=== PATIENT | male | born 1975 | race Caucasian/White ===

== ENCOUNTER → 2023-09-16 12:00 | Outpatient (CLI) | payer OTHER, SELFPAY ==
[2023-09-16 19:23] LABS: Basophils # 0.1 K/mm3 (0-0.2); Basophils % 0.6 % (0.1-2.0); Eosinophils # 0.3 K/mm3 (0.0-0.4); Eosinophils % 2.2 % (0.1-12.0); Hematocrit 50.6 % (42.0-52.0); Hemoglobin 17.7 g/dL (14.1-18.0); Lymphocytes # 2.5 K/mm3 (0.7-4.5); Lymphocytes % 17.4 % (10-50); Mean Corpuscular HGB Conc 34.9 g/dL (31.8-35.4); Mean Corpuscular Volume 91.5 fl (80-94); Mean Platelet Volume 10.8 fl (7.4-10.4); Monocytes # 0.8 K/mm3 (0.1-1.0); Monocytes % 5.6 % (1.7-9.3); Neutrophils # 10.5 K/mm3 (1.8-7.8); Neutrophils % 74.1 % (37.0-80.0); Platelet Count 217 K/mm3 (142-424); Red Blood Count 5.53 M/mm3 (4.60-6.20); White Blood Count 14.1 K/mm3 (4.8-10.8)
[2023-09-16 19:35] LABS: Alanine Aminotransferase 44 U/L (12-78); Albumin Level 4.5 g/dl (3.5-5.0); Albumin/Globulin Ratio 1.4 (1.1-1.8); Alkaline Phosphatase 102 U/L (38-126); Anion Gap 15.2 mEq/L (5-15); Aspartate Amino Transferase 50 U/L (17-59); Bilirubin,Total 0.6 mg/dl (0.2-1.3); Blood Urea Nitrogen 15 mg/dl (9-20); Calcium 9.5 mg/dl (8.4-10.2); Carbon Dioxide 25 mmol/L (22.0-30.0); Chloride 105 mmol/L (98-107); Estimated Glomerular Filt Rate 90 ml/min (>60); GFR (African American) 109 ML/MIN (>60); Globulin 3.3 g/dL (1.3-3.2); Glucose 96 mg/dl (74-100); Potassium 4.2 mmoL/L (3.5-5.1); Sodium 141 mmol/L (136-145); Total Protein,Serum 7.8 g/dl (6.3-8.2)
[2023-09-16 19:55] LABS: 25-OH Vitamin D, Total 25.7 ng/mL (30-100)
[2023-09-16 20:08] LABS: Prostate Specific Ag Screen 0.5 ng/ml (0.0-4.0); Thyroid Stimulating Hormone 0.95 uIU/mL (0.465-4.68)
[2023-09-16 20:56] LABS: Hemoglobin A1C 5.1 % (4.0-6.0)
== END ==
PROVIDERS: PCP Internal Medicine; Visit Provider Internal Medicine
DX: Z76.89 Persons encountering health services in other specified circumstances (principal); E55.9 Vitamin D deficiency, unspecified; M54.9 Dorsalgia, unspecified; Z68.37 Body mass index [BMI] 37.0-37.9, adult
CPT/HCPCS: 80053; 82306; 83036; 84443; 85025; G0103

== ENCOUNTER → 2023-10-09 07:11 | Outpatient (CLI) | payer OTHER, SELFPAY ==
--- NOTE | 2023-10-09 07:28 | MR_ITS ---
FINAL REPORT TECHNIQUE: Multiplanar and multisequence MR imaging was performed through the lumbar spine before and after contrast administration. CLINICAL HISTORY: back pain. History lumbar surgery 3 years ago. left sided low back pain with pain in left leg and burning and buttox. left arm pain COMPARISON: None FINDINGS: The vertebral bodies are normally aligned. The vertebral body heights are preserved. There is no bone marrow edema. There is no abnormal bone marrow enhancement. The cord terminates at L2. There is normal signal within the distal cord. There is no abnormal enhancement in the distal cord. There is no acute paraspinal abnormality. Right adrenal nodule is noted measuring 2.5 cm. L1-L2: Unremarkable. L2-L3: Unremarkable. L3-L4: Annular disc bulge with degenerative endplate changes and facet osteoarthropathy. Mild central stenosis. Moderate bilateral foraminal narrowing. L4-L5: Annular disc bulge with degenerative endplate changes and facet osteoarthropathy. No central stenosis. Mild inferior foraminal narrowing bilaterally. L5-S1: Changes from left laminectomy. Annular disc bulge with degenerative endplate changes and facet osteoarthropathy. No central stenosis. No right foraminal narrowing. Moderate to severe left foraminal narrowing appears due to disc osteophyte complex rather than recurrent disc herniation. IMPRESSION: Postoperative changes at L5-S1 with moderate to severe left foraminal stenosis predominantly related to disc osteophyte complex. Mild degenerative disease at other levels as detailed above. Reviewed, Interpreted and Dictated by Carrol Neal MD Transcribed by Bobbi Subramanian Authenticated and [facility]
--- NOTE | 2023-10-09 07:28 | MR_ITS ---
FINAL REPORT TECHNIQUE: Multiplanar and multisequence MR imaging was obtained through the thoracic spine before and after the administration of IV contrast. CLINICAL HISTORY: back pain. History lumbar surgery 3 years ago. left sided low back pain with pain in left leg and burning and buttox. left arm pain COMPARISON: None FINDINGS: There is normal alignment of the thoracic vertebral bodies in the sagittal plane. There is minimal compression deformity at the superior endplate of T11 which is chronic. Remaining vertebral body heights are preserved. There is no evidence of bone marrow edema. At the level of T1 there is a lesion in the posterior aspect of the central canal which appears to be intradural but intramedullary measuring 14 mm. It is T2 hypointense. There is intermediate signal intensity on precontrast T1-weighted imaging. There is displacement of the spinal cord anterior into the left. This enhances homogeneously and is favored to represent a meningioma. Less likely would be a nerve sheath tumor. On sagittal there is a suggestion of a dural tail. There is only minimal abnormal signal intensity within the cord at this level. Remaining cord signal is normal. There is no acute paraspinous abnormality. Multilevel disc desiccation with disc space narrowing. There is a small central protrusion at T5-6 without significant canal stenosis. At T7-8 there is an annular disc bulge. At T10-11 there is an annular disc bulge with mild central stenosis. IMPRESSION: Mild degenerative disease as above. Intradural extramedullary mass in the posterior canal at the level of T1 favored to represent meningioma. Reviewed, Interpreted and Dictated by Carrol Neal MD Transcribed by Bobbi Subramanian Authenticated and . [facility]
== END ==
PROVIDERS: PCP Internal Medicine; Visit Provider Internal Medicine
DX: M54.16 Radiculopathy, lumbar region (principal); M54.6 Pain in thoracic spine; Z98.890 Other specified postprocedural states
CPT/HCPCS: 72157; 72158; 76376; A9576

== ENCOUNTER 2023-12-19 08:28 | Day surgery (SDC) | payer OTHER, SELFPAY ==
[2023-12-16 13:20] VITALS: BMI 38.2
[2023-12-19 08:41] VITALS: BP 154/99; PULSE 73; RESP 18; TEMP 36.4; O2SAT 99
--- NOTE | 2023-12-19 08:45 | EXP.ANES.CKL ---
[facility] Disclaimer: The information contained in this section may have been updated after the patient was seen, as this information can be updated by other users. Medical History Erectile dysfunction Surgical History History of back surgery Hx of knee surgery Family History Other Family history of cancer Family history of hyperlipidemia Family history of hypertension Family history of myocardial infarction Social History Smoking Status: Current every day smoker tobacco type: cigarettes alcohol intake: current substance use type: marijuana current occupational status: employed Travel in the last 8 weeks: None [facility] Anesthesia Checklist Patient Identification Patient Identification: Arm Band and Verbal (Name & ) Structural Data Admitted From: Home Planned Operative Procedure/s: Colonoscopy Consent for Planned Operative Procedure(s) Verified: Yes Verified Documents: Surgical Consent and History and Physical NPO Status Verified Time NPO: 04:30 Chart Verification Results Verified: CBC and BMP Additional verifications Patient : No Anesthesia Reactions: No Cardiovascular Assessment Heart Sounds: S1 & S2 Pulse Rhythm: Irregular Peripheral Edema: No Airway Assessment Mallampati Score:: Class II C-Spine Mobility Assessed: Yes (FROM) TMJ Mobility Assessed: Yes Dentition: Good Dentition (Nothing loose per pt.) Neurological Assessment Level of Consciousness: Awake, Alert, Appropriate and Follows Commands Hx Seizures: No Numbness or tingling in extremities: No Anesthesia Plan Anesthesia Risk discussed: Yes Anesthesia Plan: Verified ASA Class: III Anesthesia Type: MAC
[2023-12-19] MEDS: LACTATED RINGERS 1000ML 1,000 ML 25 ML IV (08:46)
[2023-12-19 08:56] VITALS: O2SAT 98
[2023-12-19 09:07] VITALS: BP 114/78; PULSE 79; RESP 15; TEMP 36.5; O2SAT 95
--- NOTE | 2023-12-19 09:08 | HMH.SCOPE ---
Procedure: Date: 12/19/23 Patient Date of :: 1975 Procedure Performed:: Colonoscopy and biopsy Indications:: Screening colonoscopy Performing Provider:: Darrian Olsen MD Referring Provider:: Bassem Dee MD Sedation:: Propofol Procedure:: After placing the patient in the left lateral decubitus position, the colonoscopy was gently inserted into the rectum and under direct visualization advanced to the cecum which was identified by transillumination in the right lower quadrant, identification of the ileocecal valve, appendiceal orifice, and cecal strap. Color, texture, mucosa, and anatomy of the colon were carefully examined with the scope. Findings:: Anal canal: normal Rectum: normal Sigmoid colon: normal, small hyperplastic type polyp seen, removed with biopsy forceps Descending colon: normal without polyps or inflammatory changes Splenic flexure: normal Transverse colon: normal without polyps or inflammatory changes Hepatic flexure: normal Ascending colon: normal without polyps or inflammatory changes Cecum: normal Terminal ileum: not visualized Impression: Small sigmoid polyp otherwise normal exam Specimens:: Sigmoid polyp Recommendations:: Follow up examination in about FIVE years or so, sooner if clinically indicated. Complications:: None Estimated blood obtained (mL): 0 Colonoscopy Component Colonoscopy Component Was a colonoscopy performed during today's procedure?: Yes Recommended follow up colonoscopy of at least 10 years?: No If no, follow up colonoscopy recommended in ___ years?: Five Reason for not recommending >/= 10 yr follow-up interval?: Polyp
--- NOTE | 2023-12-19 09:16 | EXP.ANES.I ---
[facility] Anesthesia Record Part I Anesthesia Record I Intake, IV Amount: 300 Hydration: Adequate Estimated blood loss (mL): 1 Urine output (mL): 0 Blood Pressure: 114/78 SaO2: 95 Pulse Rate: 74 Airway Patency: Patent Respiratory Rate: 18 Temperature: 97.6 F Patient is:: Awake, Drowsy and Stable Stable to PACU at:: 09:12
[2023-12-19 09:17] VITALS: BP 114/78; BP 131/78; PULSE 74; RESP 18; TEMP 36.4; O2SAT 95; O2SAT 97
[2023-12-19 09:31] VITALS: BP 139/76; PULSE 69; RESP 17; O2SAT 97
== END 2023-12-19 09:33 | disposition home or self-care (01) ==
PROVIDERS: PCP Internal Medicine; Visit Provider Internal Medicine Gastroenterology
PROC: (CPT 45380; principal; 2023-12-19 09:30)
DX: Z12.11 Encounter for screening for malignant neoplasm of colon (principal); K63.5 Polyp of colon
CPT/HCPCS: 45380